=== PATIENT | female | born 1985 | race Caucasian/White ===

== ENCOUNTER → 2021-03-25 | Day surgery (SDC) | payer OTHER ==
[~2021-03-25] VITALS: Ht 165.1 cm; Wt 75.7 kg
[~2021-03-25] MED LIST: IBUPROFEN800 M1 PO
[2021-03-25 08:43] LABS: HCT 41.3 % (37.0-47.0); HGB 14.5 g/dl (12.5-16.0); MCH 32.7 pg (25.0-31.0); MCHC 35.1 g/dL (32.0-36.0); MPV 11.9 fL (6.0-9.5); RBC 4.44 M/uL (4.20-5.40); RDW 12.1 % (11.5-14.0); WBC 9.3 K/uL (4.0-10.5)
== END | disposition home or self-care (01) ==
LOC: FAS 07:46
PROVIDERS: Obstetrics & Gynecology
DX: O03.4 Incomplete spontaneous abortion without complication (principal); O26.891 Other specified pregnancy related conditions, first trimester; R93.5 Abnormal findings on diagnostic imaging of other abdominal regions, including retroperitoneum; Z90.89 Acquired absence of other organs
CPT/HCPCS: 36415; 84702; 86850; 86900; 86901; J1100; J1885; J2250; J2405; J2704; J3010; J7050; J7120